=== PATIENT | male | born 1945 | race Caucasian/White ===

== ENCOUNTER 2016-11-01 09:29 | Inpatient (IN) | payer OTHER ==
[~2016-11-01] VITALS: Ht 172.7 cm; Wt 131.5 kg
[2016-11-01 10:27] LABS: HEMOGLOBIN 14.8 gm/dl (14.0-17.5); RED BLOOD COUNT 5.06 M/UL (4.20-5.50); WHITE BLOOD COUNT 12.1 K/UL (4.5-11.0)
[2016-11-01 10:55] LABS: BUN/CREATININE RATIO 18 (0-10)
[2016-11-01] MEDS ORDERED: CYMBALTA30 MG PO (19:18)
[2016-11-01] MEDS ORDERED: VENTOLIN HFA 66.7 GM INH (19:18)
[2016-11-01] MEDS ORDERED: TYLENOL W/CODEIN1 E1 PO (19:19)
[2016-11-01] MEDS ORDERED: LORTAB 7.5-3251 EACH PO (19:20)
[2016-11-01] MEDS ORDERED: PROTONIX40 MG PO (19:22)
[2016-11-01] MEDS ORDERED: RAMIPRIL10 MG PO (19:22)
[2016-11-01] MEDS ORDERED: LIPITOR TAB 2020 MG PO (19:23)
[2016-11-01] MEDS ORDERED: TENORMIN 25 MG25 MG PO (19:24)
[2016-11-01] MEDS ORDERED: ASPIRIN EC81 MG PO (19:25)
[2016-11-01] MEDS ORDERED: NORVASC 5 MG TAB5 MG PO (19:25)
[2016-11-01] MEDS ORDERED: DHEA25 M1 PO (19:26)
[2016-11-01] MEDS ORDERED: VITAMIN D2000 UNI1 PO (19:27)
[2016-11-01] MEDS ORDERED: ZINC50 M1 PO (19:27)
[2016-11-01] MEDS ORDERED: ALLER-FEX180 MG PO (19:27)
[2016-11-01] MEDS ORDERED: CENTRUM COMPLE1 EACH PO (19:28)
[2016-11-01] MEDS ORDERED: FISH OIL 1,2001 EAC2 PO (19:28)
[2016-11-01] MEDS ORDERED: VOLTAREN100 GM TOP (19:31)
[2016-11-02 05:33] LABS: HEMOGLOBIN 14.4 gm/dl (14.0-17.5); RED BLOOD COUNT 4.93 M/UL (4.20-5.50); WHITE BLOOD COUNT 12.9 K/UL (4.5-11.0)
[2016-11-02 05:55] LABS: BUN/CREATININE RATIO 17 (0-10)
[2016-11-03 15:21] LABS: GLUCOSE,CSF 76 mg/dL (50-80); TOTAL PROTEIN,CSF 106 mg/dL (20-45)
[2016-11-03 16:09] LABS: CRYPTOCOCCUS NEOFORMANS/GATTII Not Detected (Negative); CYTOMEGALOVIRUS Not Detected (Negative); ENTEROVIRUS Not Detected (Negative); ESCHERICHIA COLI K1 Not Detected (Negative); HAEMOPHILUS INFLUENZAE Not Detected (Negative); HERPES SIMPLEX VIRUS 1 Not Detected (Negative); HERPES SIMPLEX VIRUS 2 Not Detected (Negative); HUMAN HERPESVIRUS 6 Not Detected (Negative); HUMAN PARECHOVIRUS Not Detected (Negative); LISTERIA MONOCYTOGENES Not Detected (Negative); NEISERRIA MENINGITIDIS Not Detected (Negative); STREPTOCOCCUS AGALACTIAE Not Detected (Negative); STREPTOCOCCUS PNEUMONIAE Not Detected (Negative); VARICELLA ZOSTER VIRUS Not Detected (Negative)
[2016-11-04 04:16] LABS: HEMOGLOBIN 13.1 gm/dl (14.0-17.5); RED BLOOD COUNT 4.57 M/UL (4.20-5.50)
[2016-11-04 04:35] LABS: BUN/CREATININE RATIO 25 (0-10)
[2016-11-07 07:49] LABS: BUN/CREATININE RATIO 14 (0-10)
== END 2016-11-09 15:59 | DRG 95 ==
LOC: ER1 09:29 → MED SURG 4 16:24 → ZEROF 16:24 → MED SURG 4 18:02
PROVIDERS: Internal Medicine; Physician Assistant; ADMIT Family Medicine
PROC: 30233S1 Transfusion of Nonautologous Globulin into Peripheral Vein, Percutaneous Approach (ICD-10-PCS; principal; 2016-11-03)
PROC: 009U3ZX Drainage of Spinal Canal, Percutaneous Approach, Diagnostic (ICD-10-PCS; 2016-11-03)
PROC: B01B1ZZ Fluoroscopy of Spinal Cord using Low Osmolar Contrast (ICD-10-PCS; 2016-11-03)
DX: G61.0 Guillain-Barre syndrome (principal); N39.0 Urinary tract infection, site not specified; G91.9 Hydrocephalus, unspecified; Z68.41 Body mass index [BMI] 40.0-44.9, adult; I10 Essential (primary) hypertension; B96.20 Unspecified Escherichia coli [E. coli] as the cause of diseases classified elsewhere; K21.9 Gastro-esophageal reflux disease without esophagitis; E78.5 Hyperlipidemia, unspecified; E66.01 Morbid (severe) obesity due to excess calories; R29.6 Repeated falls; G93.89 Other specified disorders of brain
CPT/HCPCS: 36415; 70450; 71010; 77003; 80048; 80053; 82550; 82553; 82945; 83735; 83874; 83880; 84157; 84439; 84443; 84484; 85025; 85027; 87070; 87077; 87086; 87186; 87205; 87210; 87483; 89051; 93005; 94640; 94664; 97110; 97530; 99285; G0378; J1568; J1572; J1650